=== PATIENT | female | born 1990 | race Two or more races ===

== ENCOUNTER 2019-03-10 14:00 | Emergency (ER) | payer MEDICAID ==
--- NOTE | 2019-03-10 14:38 | EDM.PDOC ---
ED HPI GENERAL MEDICAL PROBLEM - General Chief Complaint: ENT Problem Stated Complaint: POSSIBLE INFECTION POST SURGERY 7 DAYS Time Seen by Provider: 03/10/19 14:33 Source of Information: Reports: Patient History Limitations: Reports: No Limitations - History of Present Illness INITIAL COMMENTS - FREE TEXT/NARRATIVE: Patient is s/p right mastoidectomy to treat cholesteatoma ([facility], Dr. Hannon) on 03/03/19. She presents with fever to 105.4 today associated with chills. Denies increased post op pain but has had persistent clear bloody drainage from the right ear canal since the surgery. Denies headache, stiff neck , cough, or N/V. Patient did have transient SOB and weakness earlier today. Onset: Today Severity: Moderate Associated Symptoms: Reports: Fever/Chills - Related Data Allergies Allergy/AdvReac Type Severity Reaction Status Date / Time No Known Allergies Allergy Verified 03/10/19 14:41 Home Meds: Home Meds Ciprofloxacin HCl [Cipro] 500 mg PO BID #20 tablet 03/10/19 [Rx] Levothyroxine 75 mcg PO ACBREAKFAST 03/10/19 [History] Ofloxacin [Floxin 0.3% Otic Soln] 4 drop EARRT BID #1 bottle 03/10/19 [Rx] Past Medical History Endocrine/Metabolic History: Reports: Hypothyroidism ED ROS GENERAL - Review of Systems Review Of Systems: ROS reveals no pertinent complaints other than HPI. ED EXAM, GENERAL - Physical Exam Exam: See Below Exam Limited By: No Limitations General Appearance: Alert, WD/WN, No Apparent Distress Ears: Other (right posterior auricular incision appears CDI w/o evidence for infection) Ear Exam: Right Ear: Other (clear bloody fluid right external auditory canal) Nose: Normal Inspection Throat/Mouth: No Airway Compromise, Other (2+ tonsils) Head: Atraumatic, Normocephalic Neck: Supple Respiratory/Chest: No Respiratory Distress, Lungs Clear, Normal Breath Sounds Cardiovascular: Regular Rate, Rhythm, No Murmur Back Exam: Full Range of Motion Extremities: Normal Range of Motion Neurological: Alert, Normal Cognition Skin Exam: Warm, Dry, Normal Color Course - Vital Signs Last Recorded V/S: Last Vital Signs Temp 37.7 C 03/10/19 15:43 Pulse 107 H 03/10/19 15:43 Resp 16 03/10/19 15:43 BP 116/61 10/17/19 15:43 Pulse Ox 100 03/10/19 15:43 - Orders/Labs/Meds Orders: Active Orders 24 hr Category Date Time Status CULTURE BLOOD [BC] Urgent Lab 03/10/19 14:42 Received CULTURE BLOOD [BC] Urgent Lab 03/10/19 14:48 Received CULTURE ROUTINE + SMEAR [RM] Stat Lab 03/10/19 15:30 Received CULTURE URINE [RM] Stat Lab 03/10/19 14:32 Received Blood Culture x2 Reflex Set [OM.PC] Urgent Oth 03/10/19 14:32 Ordered Labs: Laboratory Tests 03/10/19 03/10/19 03/10/19 Range/Units 14:32 14:42 14:42 WBC 11.4 (4.5-12.0) X10-3/uL RBC 5.26 H (3.23-5.20) x10(6)uL Hgb 14.9 (11.5-15.5) g/dL Hct 44.9 (30.0-51.3) % MCV 85.4 (80-96) fL MCH 28.3 (27.7-33.6) pg MCHC 33.2 (32.2-35.4) g/dL RDW 12.7 (11.5-15.5) % Plt Count 388 H (125-369) X10(3)uL MPV 7.9 (7.4-10.4) fL Neut % (Auto) 78.6 (46-82) % Lymph % (Auto) 11.5 L (13-37) % [place] % (Auto) 6.0 (4-12) % Eos % (Auto) 1 (1.0-5.0) % Baso % (Auto) 3 H (0-2) % Neut # (Auto) 9.0 H (1.6-8.3) # Lymph # (Auto) 1.3 (0.6-5.0) # [place] # (Auto) 0.7 (0.0-1.3) # Eos # (Auto) 0.1 (0.0-0.8) # Baso # (Auto) 0.3 H (0.0-0.2) # Sodium 139 (135-145) mmol/L Potassium 3.7 (3.5-5.3) mmol/L Chloride 103 (100-110) mmol/L Carbon Dioxide 27 (21-32) mmol/L BUN 14 (7-18) mg/dL Creatinine 0.8 (0.55-1.02) mg/dL Est Cr Clr Drug Dosing 95.89 mL/min Estimated GFR (MDRD) > 60 (>60) BUN/Creatinine Ratio 17.5 (9-20) Glucose 84 (80-116) mg/dL Lactic Acid (0.4-2.2) mmol/L Calcium 8.9 (8.6-10.2) mg/dL Total Bilirubin 0.2 (0.1-1.3) mg/dL AST 14 (5-25) IU/L ALT 24 (12-36) U/L Alkaline Phosphatase 96 (56-112) IU/L Total Protein 8.2 H (6.0-8.0) g/dL Albumin 3.6 (3.5-5.2) g/dL Globulin 4.6 g/dL Albumin/Globulin Ratio 0.8 Urine Color Yellow (YELLOW) Urine Appearance Clear (CLEAR) Urine pH 7.0 H (5.0-6.5) Ur Specific [place] 1.005 L (1.010-1.025) Urine Protein Negative (NEGATIVE) mg/dL Urine Glucose (UA) Normal (NORMAL) mg/dL Urine Ketones Negative (NEGATIVE) mg/dL Urine Occult Blood Negative (NEGATIVE) Urine Nitrite Negative (NEGATIVE) Urine Bilirubin Negative (NEGATIVE) Urine Urobilinogen Normal (NEGATIVE) mg/dL Ur Leukocyte Esterase Moderate H (NEGATIVE) Urine RBC 0-5 (0-5) Urine WBC 0-5 (0-5) Ur Squamous Epith Cells Moderate H (NS,R,O) Urine Bacteria Few H (NS) Hyaline Casts Few H (NS) Urine Mucus Few H (NS) 03/10/19 Range/Units 14:42 WBC (4.5-12.0) X10-3/uL RBC (3.23-5.20) x10(6)uL Hgb (11.5-15.5) g/dL Hct (30.0-51.3) % MCV (80-96) fL MCH (27.7-33.6) pg MCHC (32.2-35.4) g/dL RDW (11.5-15.5) % Plt Count (125-369) X10(3)uL MPV (7.4-10.4) fL Neut % (Auto) (46-82) % Lymph % (Auto) (13-37) % [place] % (Auto) (4-12) % Eos % (Auto) (1.0-5.0) % Baso % (Auto) (0-2) % Neut # (Auto) (1.6-8.3) # Lymph # (Auto) (0.6-5.0) # [place] # (Auto) (0.0-1.3) # Eos # (Auto) (0.0-0.8) # Baso # (Auto) (0.0-0.2) # Sodium (135-145) mmol/L Potassium (3.5-5.3) mmol/L Chloride (100-110) mmol/L Carbon Dioxide (21-32) mmol/L BUN (7-18) mg/dL Creatinine (0.55-1.02) mg/dL Est Cr Clr Drug Dosing mL/min Estimated GFR (MDRD) (>60) BUN/Creatinine Ratio (9-20) Glucose (80-116) mg/dL Lactic Acid 1.2 (0.4-2.2) mmol/L Calcium (8.6-10.2) mg/dL Total Bilirubin (0.1-1.3) mg/dL AST (5-25) IU/L ALT (12-36) U/L Alkaline Phosphatase (56-112) IU/L Total Protein (6.0-8.0) g/dL Albumin (3.5-5.2) g/dL Globulin g/dL Albumin/Globulin Ratio Urine Color (YELLOW) Urine Appearance (CLEAR) Urine pH (5.0-6.5) Ur Specific [place] (1.010-1.025) Urine Protein (NEGATIVE) mg/dL Urine Glucose (UA) (NORMAL) mg/dL Urine Ketones (NEGATIVE) mg/dL Urine Occult Blood (NEGATIVE) Urine Nitrite (NEGATIVE) Urine Bilirubin (NEGATIVE) Urine Urobilinogen (NEGATIVE) mg/dL Ur Leukocyte Esterase (NEGATIVE) Urine RBC (0-5) Urine WBC (0-5) Ur Squamous Epith Cells (NS,R,O) Urine Bacteria (NS) Hyaline Casts (NS) Urine Mucus (NS) Meds: Medications Discontinued Medications Generic Name Dose Route Start Last Admin Trade Name Joseph PRN Reason Stop Dose Admin Ciprofloxacin 500 mg 03/10/19 15:40 03/10/19 15:46 Ciprofloxacin Hcl PO 03/10/19 15:41 500 mg ONETIME ONE Administration - Re-Assessments/Exams Free Text/Narrative Re-Assessment/Exam: 03/10/19 15:54 Labs do not suggest sepsis. Case discussed with Dr. Hannon ([facility]), recommends changing antibiotic to Cipro and also rx Ofloxacin ear gtt. Follow up appointment made for tomorrow with Dr. Hannon in [place] at [address]am. Dr. Hannon advises against imaging at this time. Departure - Departure Time of Disposition: 15:56 Disposition: Home, Self-Care 01 Condition: Good Clinical Impression: Fever Qualifiers: Fever type: unspecified Qualified Code(s): R50.9 - Fever, unspecified - Discharge Information *PRESCRIPTION DRUG MONITORING PROGRAM REVIEWED*: No *COPY OF PRESCRIPTION DRUG MONITORING REPORT IN PATIENT TONIA: Not Applicable Prescriptions: Ciprofloxacin HCl [Cipro] 500 mg PO BID #20 tablet Ofloxacin [Floxin 0.3% Otic Soln] 4 drop EARRT BID #1 bottle Instructions: Fever, Adult, [id number] Referrals: PCP,None [Primary Care Provider] - Damian Hannon MD [Ordering Only Provider] - 1 Day Forms: ED Department Discharge Additional Instructions: Discontinue Cefuroxime. Fill prescriptions for Cipro and Ofloxacin and take as directed. Follow up with Dr. Hannon tomorrow at 9am in [place]. - My Orders Last 24 Hours: My Active Orders 03/10/19 14:32 CULTURE URINE [RM] Stat Blood Culture x2 Reflex Set [OM.PC] Urgent 03/10/19 14:42 CULTURE BLOOD [BC] Urgent 03/10/19 14:48 CULTURE BLOOD [BC] Urgent 03/10/19 15:30 CULTURE ROUTINE + SMEAR [RM] Stat - Assessment/Plan Last 24 Hours: My Active Orders 03/10/19 14:32 CULTURE URINE [RM] Stat Blood Culture x2 Reflex Set [OM.PC] Urgent 03/10/19 14:42 CULTURE BLOOD [BC] Urgent 03/10/19 14:48 CULTURE BLOOD [BC] Urgent 03/10/19 15:30 CULTURE ROUTINE + SMEAR [RM] Stat
[2019-03-10] MEDS ORDERED: Ciprofloxacin 500 MG Tab PO ONE (15:40)
== END 2019-03-10 16:09 | disposition home or self-care (01) ==
LOC: FB.ED 14:00
DX: R50.9 Fever, unspecified (principal); E03.9 Hypothyroidism, unspecified; Z79.899 Other long term (current) drug therapy
CPT/HCPCS: 36415; 80053; 81001; 83605; 85025; 87040; 87070; 87086; 87088; 87186; 87205; 87804; 99283; A9270

== ENCOUNTER 2022-02-04 01:05 | Emergency (ER) | payer MEDICAID ==
[2022-02-04] MEDS ORDERED: Ketorolac 30 MG/ML SDV IVPUSH ONE (01:20)
[2022-02-04] MEDS ORDERED: Sodium Chloride 0.9% 1,000 ML IV ONE (01:20)
[2022-02-04] MEDS ORDERED: Sodium Chloride 0.9% 10 ML Syringe FLUSH PRN (01:20)
[2022-02-04] MEDS ORDERED: Ondansetron 4 MG/2 ML SDV IVPUSH ONE (01:20)
[2022-02-04 01:57] LABS: ESTIMATED GFR 89 mL/min (>60)
== END 2022-02-04 03:30 | disposition home or self-care (01) ==
LOC: FB.ED 01:05
DX: R10.11 Right upper quadrant pain (principal); R10.13 Epigastric pain; R11.2 Nausea with vomiting, unspecified; E03.9 Hypothyroidism, unspecified; Z79.899 Other long term (current) drug therapy
CPT/HCPCS: 36415; 80053; 81001; 81025; 83690; 83735; 85025; 86140; 96361; 96374; 96375; 99284; J1885; J2405; J7030